=== PATIENT | male | born 1960 | race Hispanic/Latino ===

== ENCOUNTER 2018-09-11 07:27 | Emergency (ER) | payer OTHER ==
[2018-09-11 07:42] VITALS: BMI 34.2
[2018-09-11 08:10] VITALS: RESP 18; O2SAT 97
--- NOTE | 2018-09-11 08:34 | ED PDOC ---
HPI: CCC, URI, Sore Throat Time Seen by Provider: 09/11/18 07:52 Chief Complaint (Nursing): Cough, Cold, Congestion Chief Complaint (Provider): Cough and Runy Nose History Per: Patient History/Exam Limitations: no limitations Onset/Duration Of Symptoms: Days (2x) Current Symptoms Are (Timing): Still Present Additional Complaint(s): 57 year old male presents to the ED for an evaluation of runny nose and non- productive cough onset for 2 days. Patient denies fever, sore throat or shortness of breath. PMD: Non CPH Financial Report [employer] Past Medical History Reviewed: Historical Data, Nursing Documentation, Vital Signs Vital Signs: Last Vital Signs Temp 98.1 F 09/11/18 08:01 Pulse 90 09/11/18 08:01 Resp 18 09/11/18 08:01 BP 134/78 09/11/18 08:01 Pulse Ox 97 09/11/18 08:01 - Medical History PMH: No Chronic Diseases - Family History Family History: States: Unknown Family Hx - Social History Current smoker - smoking cessation education provided: No Alcohol: Social Drugs: Denies - Immunization History Hx Tetanus Toxoid Vaccination: Yes Hx Influenza Vaccination: No Hx Pneumococcal Vaccination: No - Home Medications Home Medications: Ambulatory Orders Medication Instructions Recorded Azithromycin [Zithromax] 250 mg PO DAILY #6 tab 09/11/18 Fluticasone Nasal [Flonase] 1 actuation NS DAILY #1 spr 09/11/18 - Allergies Allergies/Adverse Reactions: Allergies Allergy/AdvReac Type Severity Reaction Status Date / Time Unobtainable Allergy Verified 09/11/18 08:07 Review of Systems ROS Statement: Except As Marked, All Systems Reviewed And Found Negative Constitutional: Negative for: Fever ENT: Positive for: Nose Discharge. Negative for: Throat Pain Cardiovascular: Negative for: Chest Pain Respiratory: Positive for: Cough. Negative for: Shortness of Breath Gastrointestinal: Negative for: Abdominal Pain Physical Exam - Reviewed Nursing Documentation Reviewed: Yes Vital Signs Reviewed: Yes - Physical Exam Appears: Positive for: Non-toxic, No Acute Distress Head Exam: Positive for: ATRAUMATIC, NORMAL INSPECTION, NORMOCEPHALIC Skin: Positive for: Normal Color, Warm, Dry. Negative for: Rash Eye Exam: Positive for: EOMI, Normal appearance, PERRL ENT: Positive for: Normal ENT Inspection Neck: Positive for: Normal, Painless ROM Cardiovascular/Chest: Positive for: Regular Rate, Rhythm. Negative for: Murmur Respiratory: Positive for: Normal Breath Sounds. Negative for: Decreased Breath Sounds, Wheezing, Respiratory Distress Gastrointestinal/Abdominal: Positive for: Normal Exam, Soft. Negative for: Tenderness Extremity: Positive for: Normal ROM. Negative for: Tenderness, Pedal Edema, Deformity Neurologic/Psych: Positive for: Alert, Oriented (x3). Negative for: Motor/Sensory Deficits - ECG O2 Sat by Pulse Oximetry: 97 (RA) Pulse Ox Interpretation: Normal Medical Decision Making Medical Decision Making: Time: 814 Initial Plan: Influenza A B Stat Reevaluation ----- Scribe Attestation: Documented by Rosie Shane, acting as a scribe for Emeka Matthew MD. Provider Scribe Attestation: All medical record entries made by the Scribe were at my direction and personally dictated by me. I have reviewed the chart and agree that the record accurately reflects my personal performance of the history, physical exam, medical decision making, and the department course for this patient. I have also personally directed, reviewed, and agree with the discharge instructions and disposition. Disposition - Clinical Impression Clinical Impression: Upper respiratory infection - Patient ED Disposition Is Patient to be Admitted: No Counseled Patient/Family Regarding: Studies Performed, Diagnosis, Need For Followup, Rx Given - Disposition Referrals: [facility] [Outside] Disposition: Routine/Home Disposition Time: 10:06 Condition: FAIR Prescriptions: Azithromycin [Zithromax] 250 mg PO DAILY #6 tab Fluticasone Nasal [Flonase] 1 actuation NS DAILY #1 spr Instructions: Bacterial Upper Respiratory Infection, Adult Forms: [facility] ([place]e)
[2018-09-11 10:41] VITALS: BP 125/79; PULSE 88; TEMP 98.2
== END 2018-09-11 10:41 | disposition home or self-care (01) ==
LOC: H.ER 07:27
DX: J06.9 Acute upper respiratory infection, unspecified (principal)